=== PATIENT | female | born 1995 | race Caucasian/White ===

== ENCOUNTER 2017-02-04 11:10 | Observation (INO) | payer MEDICAID ==
[2017-02-04 11:15] VITALS: RESP 18
[2017-02-04 12:19] LABS: RBC URINE 909 /hpf (0-3); URINE BACTERIA RARE (<OCC); URINE BILIRUBIN NEGATIVE (NEGATIVE); URINE BLOOD 3+ (NEGATIVE); URINE GLUCOSE (UA) NORMAL (Normal); URINE KETONE NEGATIVE (NEGATIVE); URINE LEUKOCYTE ESTERASE 1+ Leu/uL (Negative); URINE PROTEIN 2+ mg/dL (NEGATIVE); URINE UROBILINOGEN NORMAL mg/dL (0.2-1.0)
[2017-02-04 12:20] LABS: WBC URINE 2 /hpf (0-5)
[2017-02-04 12:21] LABS: URINE COLOR Red (YELLOW)
[2017-02-04 12:32] LABS: BASO # 0.1 K/uL (0.0-0.2); BASO % 0.8 % (0.0-2.0); EOS # 0.1 K/uL (0.0-0.7); EOS % 0.6 % (0.0-4.0); LYMPH # 2.4 K/uL (1.0-4.3); MEAN CELL VOLUME 82.5 fL (81.0-99.0); MEAN CORPUSCULAR HEMOGLOBIN 27.6 pg (27.0-31.0); MEAN CORPUSCULAR HGB CONC 33.5 g/dL (33.0-37.0); MEAN PLATELET VOLUME 9.7 fL (7.2-11.7); MONO # 0.9 K/uL (0.0-0.8); MONO % 7.4 % (0.0-10.0); NRBC % 0.1 % (0.0-2.0); RED CELL DISTRIBUTION WIDTH 13.9 % (11.5-14.5); WHITE BLOOD COUNT 12.1 K/uL (4.8-10.8)
--- NOTE | 2017-02-04 12:33 | C.PDOC ---
History Of Present Illness 21 y/o female presents to the ED with complains of lower abdominal cramping since 0200 this morning. Pt is , LMP 11/21/16. Pt had positive home test last week. Pt also reports vaginal bleeding similar to a period. Pt denies urinary symptoms, fever, nausea, vomiting or any other complaints. Time Seen by Provider: 02/04/17 11:26 Chief Complaint (Nursing): Female Genitourinary History Per: Patient History/Exam Limitations: no limitations Onset/Duration Of Symptoms: Hrs Current Symptoms Are (Timing): Still Present Severity: Moderate Quality Of Discomfort: Cramping Associated Symptoms: denies: Fever, Chills, Nausea, Vomiting, Urinary Symptoms Alleviating Factors: None Recent travel outside of the [place]: No Abnormal Vaginal Bleeding: Yes Past Medical History Reviewed: Historical Data, Nursing Documentation, Vital Signs Vital Signs: Last Vital Signs Temp 98.7 F 02/04/17 16:25 Pulse 87 02/04/17 16:25 Resp 18 02/04/17 16:25 BP 125/81 02/04/17 16:25 Pulse Ox 98 02/04/17 16:25 - Medical History PMH: Asthma Family History: States: Unknown Family Hx - Social History Hx Alcohol Use: Yes Hx Substance Use: No - Immunization History Hx Tetanus Toxoid Vaccination: No Hx Influenza Vaccination: Yes Hx Pneumococcal Vaccination: No Review Of Systems Except As Marked, All Systems Reviewed And Found Negative. Constitutional: Negative for: Fever Gastrointestinal: Positive for: Abdominal Pain. Negative for: Nausea, Vomiting Genitourinary: Positive for: Vaginal Bleeding. Negative for: Dysuria, Hematuria Physical Exam - Physical Exam Appears: Non-toxic, No Acute Distress Skin: Warm, Dry, No Rash Head: Atraumatic, Normacephalic Chest: Symmetrical Cardiovascular: Rhythm Regular, No Murmur Respiratory: Normal Breath Sounds, No Rales, No Rhonchi, No Wheezing Gastrointestinal/Abdominal: Soft, No Tenderness Extremity: Normal ROM Extremity: Bilateral: Atraumatic Neurological/Psych: Oriented x3, Normal Speech ED Course And Treatment - Laboratory Results Result Diagrams: 02/04/17 12:27 02/04/17 12:27 O2 Sat by Pulse Oximetry: 99 (on room air) Pulse Ox Interpretation: Normal - CT Scan/US US transvag Other Rad Studies (CT/US): Read By Radiologist, Radiology Report Reviewed CT/US Interpretation: PROCEDURE: HISTORY: vaginal bleeding ; beta HCG level 889.45. Patient's LMP 11/21/2016. Estate this estimated gestational age by LMP is 10 weeks 5 days. COMPARISON: 05/08/2016 pelvic/transvaginal ultrasound. TECHNIQUE: Transabdominal and transvaginal scanning was performed. Color Doppler was applied. FINDINGS: The uterus measures 11 0.0 x 3.7 x 4.5 cm and is anteverted. No uterine masses are noted. No intrauterine gestational sac is identified. No free fluid in the cul-de-sac is noted. The right ovary measures 2.9 x 2.6 x 2.7 cm. Doppler flow was present and normal. Left ovary measures 2.9 x 1.9 x 2.6 cm. Doppler flow was normal. There is nonspecific almost amorphous mild nearly isoechoic heterogeneity to the endometrium and ending endocervical canal . There is some vascularity to the uterine myometrium here. IMPRESSION: No intrauterine gestation sac identified. No extra uterine station identified. . The findings are consistent with a missed , -an ectopic and/or conceivably an early gestational trophoblastic disease. An early IUP less than 5 weeks is not excluded but believe less likely. Follow-up serial beta HCG levels and serial imaging 7 at 10 days is recommended for ongoing evaluation. Nursing Home Assistant consultation if not already obtained is also recommended. Progress Note: Plan: US transvag, UA, labs, IV fluids ED OBSERVATION Date of observation admission: 02/04/17 Time of observation admission: 12:10 - Observation admission statement Patient is being placed in observation because:: To order US to r/o ectopic vs threatened . - Goals of Observation Goals of observation are:: To monitor patient's symptoms. - Progress Note Progress Note: 02/04/17 14:15 On re-evaluation, patient is laying in bed comfortably, labs reviewed. US still results pending. 02/04/17 15:29 On second re-evaluation, patient's symptoms are stable, reports no increase in vaginal bleeding or her abdominal pain. On exam, patient is sitting up in bed comfortably in no acute distress. Abdomen remains soft with no tenderness, no rebound, no guarding. Patient states that she feels comfortable going home. Advised to return to the ER after 2 days for repeat beta quant. Advised to take Rx of macrobid to treat UTI. Patient verbalize understanding of d/c instructions. Disposition - Disposition Disposition: HOME/ ROUTINE Disposition Time: 12:10 (Pt placed in ED obs) Condition: GOOD - Clinical Impression Clinical Impression: Miscarriage, UTI (urinary tract infection) - PA / SWINE EXTENSION FIELD SPECIALIST / Resident Statement MD/DO has reviewed & agrees with the documentation as recorded. - Scribe Statement The provider has reviewed the documentation as recorded by the Raghuibjeremiah El All medical record entries made by the Krysten were at my direction and personally dictated by me. I have reviewed the chart and agree that the record accurately reflects my personal performance of the history, physical exam, medical decision making, and the department course for this patient. I have also personally directed, reviewed, and agree with the discharge instructions and disposition.
[2017-02-04 12:45] LABS: CHLORIDE 102 mmol/L (98-107); POTASSIUM 3.7 mmol/L (3.6-5.2); SODIUM 139 mmol/L (132-148)
[2017-02-04 12:47] LABS: AST/SGOT 25 U/L (14-36); BILIRUBIN,TOTAL 0.5 mg/dL (0.2-1.3); CARBON DIOXIDE 21 mmol/L (22-30); GFR AFRICAN-AMERICAN > 60
[2017-02-04 12:48] LABS: ALB/GLOB RATIO 1.3 (1.0-2.1); ALKALINE PHOSPHATASE 46 U/L (38-126); ALT/SGPT 22 U/L (9-52); BLOOD UREA NITROGEN 8 mg/dL (7-17); GLUCOSE,RANDOM 113 mg/dL (65-105); TOTAL PROTEIN 7.5 g/dL (6.3-8.3)
--- NOTE | 2017-02-04 15:04 | US ---
PROCEDURE: HISTORY: vaginal bleeding ; beta HCG level 889.45. Patient's LMP 11/21/2016. Estate this estimated gestational age by LMP is 10 weeks 5 days. COMPARISON: 05/08/2016 pelvic/transvaginal ultrasound TECHNIQUE: Transabdominal and transvaginal scanning was performed. Color Doppler was applied FINDINGS: The uterus measures 11 0.0 x 3.7 x 4.5 cm and is anteverted. No uterine masses are noted. No intrauterine gestational sac is identified. No free fluid in the cul-de-sac is noted. The right ovary measures 2.9 x 2.6 x 2.7 cm. Doppler flow was present and normal. Left ovary measures 2.9 x 1.9 x 2.6 cm. Doppler flow was normal. There is nonspecific almost amorphous mild nearly isoechoic heterogeneity to the endometrium and ending endocervical canal . There is some vascularity to the uterine myometrium here IMPRESSION: No intrauterine gestation sac identified. No extra uterine station identified. . The findings are consistent with a missed , -an ectopic and/or conceivably an early gestational trophoblastic disease. An early IUP less than 5 weeks is not excluded but believe less likely. Follow-up serial beta HCG levels and serial imaging 7 at 10 days is recommended for ongoing evaluation. Gas And Oil Checker consultation if not already obtained is also recommended.
[2017-02-04 15:15] VITALS: BMI 26.1
[2017-02-04 16:30] VITALS: BP 125/81; PULSE 87; TEMP 98.7
[2017-02-04 18:32] VITALS: O2SAT 99
== END 2017-02-04 16:11 | disposition home or self-care (01) ==
LOC: C.ER 11:10 → C.9OBSV 12:10
PROVIDERS: ADMIT Emergency Medicine; ATTEND Emergency Medicine
DX: O02.1 Missed abortion (principal); O08.83 Urinary tract infection following an ectopic and molar pregnancy; N39.0 Urinary tract infection, site not specified
CPT/HCPCS: 76830; 76856; 80053; 81001; 84702; 84703; 85025; 86850; 86900; 87086; G0378